=== PATIENT | female | born 1980 | race Hispanic/Latino ===

== ENCOUNTER 2025-02-03 08:25 | Emergency (ER) | payer BC, SELFPAY ==
[2025-02-03] MEDS ORDERED: Acetaminophen 500 MG TAB ONE (09:31)
[2025-02-03] MEDS ORDERED: Ibuprofen 800 MG TAB ONE (09:32)
== END 2025-02-03 11:47 | disposition home or self-care (01) ==
LOC: CSHERS 08:25
DX: S89.92XA Unspecified injury of left lower leg, initial encounter (principal); M25.462 Effusion, left knee; F17.210 Nicotine dependence, cigarettes, uncomplicated; W05.1XXA Fall from non-moving nonmotorized scooter, initial encounter